=== PATIENT | male | born 1970 | race Caucasian/White ===

== ENCOUNTER → 2016-11-17 | Day surgery (SDC) | payer MEDICARE, MEDICAID ==
[~2016-11-17] MED LIST: BACL20TA PO; CIPR-9 PO; GABA600T PO; LIDOCAINE HCL 1% 30 ML VIAL INFIL ONE; LISI10TA3 PO; MEPERIDINE HCL 25 MG/ML VIAL IV ONE; METO100T PO; MIDAZOLAM HCL 2 MG/2 ML VIAL IV ONE; MIRA25TA PO; PANT20TA2 PO; PERC10TA27 PO; PROPOFOL 200 MG/20 ML AMP IV ONE; SODIUM CHLORIDE 0.9% 250 ML ADDBAG ONE; SODIUM CHLORIDE 0.9% INJ 100 ML ONE; SYMB160A INH; [UNRECOGNIZED DRUG - REMARK] IT ONE; ceFAZolin INJ 1,000 MG VIAL ONE
--- NOTE | 2016-11-18 08:32 | M6 ---
cc: LEVON GARCIA M.D. DATE 11/17/2016 DATE OF 1970 PROCEDURE Implantation of intrathecal catheter for continuous infusion of Baclofen PROCEDURE NOTE History and physical was completed and signed. Consent was signed. Procedure site was marked. Medications were listed and reconciled. Pain score was recorded. Allergies were noted. Time out was taken. Fluoroscopy time was recorded where applicable. Sedation was administered or directed by Dr. Garcia. The patient was given oxygen. The patient was monitored by a registered nurse. Total procedure time was greater than 15 minutes. IV was started, blood pressure cuff, pulse oximeter and EKG were applied. The patient was placed in the left lateral decubitus position, sedated with small amounts of Versed, Demerol and propofol titrated to effect. Vital signs were monitored and remained stable throughout the procedure. His back was prepped with alcohol and 10% Betadine solution, draped with sterile drapes. Fluoroscopy was used to visualize the L3-4 interlaminar space, A 3-1/2-inch 18-gauge Tuohy needle was advanced into the intrathecal space on the first attempt. There was clear flow of cerebrospinal fluid. Then a Portex catheter was threaded in a cephalad direction three vertebral bodies. Then a small incision was made around the needle and the stylet was removed. The needle was removed and a tunneling device was used to pass the catheter to exit on the patient's right flank. There was clear flow of cerebrospinal fluid through the catheter. Then the exit site in the flank and the midline incision were covered with sterile adhesive dressings. The patient was attached to a solution of baclofen at 10 mcg/ml at a continuous rate of 0.4 mL an hour. W. MD DIALLO Tubbs/MARKY /8:28 AM /8:20 AM
== END | disposition home or self-care (01) ==
LOC: PHSDC 06:31
PROVIDERS: ATTEND Pain Medicine Interventional Pain Medicine
DX: M54.6 Pain in thoracic spine (principal); M62.830 Muscle spasm of back
CPT/HCPCS: 62350; 77003; 99152; 99153; C2626; J0476; J0690; J2175; J2250

== ENCOUNTER → 2016-11-24 | Outpatient (CLI) | payer MEDICARE ==
[~2016-11-24] MED LIST changes: -LIDOCAINE HCL 1% 30 ML VIAL INFIL ONE; -MEPERIDINE HCL 25 MG/ML VIAL IV ONE; -MIDAZOLAM HCL 2 MG/2 ML VIAL IV ONE; -PROPOFOL 200 MG/20 ML AMP IV ONE; -SODIUM CHLORIDE 0.9% 250 ML ADDBAG ONE; -SODIUM CHLORIDE 0.9% INJ 100 ML ONE; -[UNRECOGNIZED DRUG - REMARK] IT ONE; -ceFAZolin INJ 1,000 MG VIAL ONE
[2016-11-24 14:11] LABS: AUTOMATED NEUTROPHIL # 7.7 TH/MM3 (1.8-7.7); BASOPHIL # 0.1 TH/MM3 (0-0.2); BASOPHIL % 1.1 % (0.0-2.0); EOSINOPHIL # 0.3 TH/MM3 (0-0.4); EOSINOPHIL % 2.3 % (0.0-4.0); HEMATOCRIT 45.2 % (39.0-51.0); HEMO FLAGS DIFF FINAL; LYMPH % 21.4 % (9.0-44.0); LYMPHOCYTE # 2.5 TH/MM3 (1.0-4.8); MEAN CORPUSCULAR HEMOGLOBIN 30.7 PG (27.0-34.0); MEAN CORPUSCULAR HGB CONC 33.4 % (32.0-36.0); MONO % 7.9 % (0.0-8.0); NEUT % 67.3 % (16.0-70.0); PLATELET COUNT 421 TH/MM3 (150-450); RED BLOOD COUNT 4.91 MIL/MM3 (4.50-5.90); RED CELL DISTRIBUTION WIDTH 15.3 % (11.6-17.2); WHITE BLOOD COUNT 11.5 TH/MM3 (4.0-11.0)
[2016-11-24 14:12] LABS: BLOOD, URINE NEG (NEG); GLUCOSE,URINE NEG (NEG); KETONE, URINE TRACE mg/dL (NEG); NITRITE,URINE NEG (NEG)
[2016-11-24 14:13] LABS: METHOD OF COLLECTION CLEAN CATCH
[2016-11-24 14:14] LABS: URINE COLOR AMBER (YELLW/STRAW)
[2016-11-24 14:19] LABS: BACTERIA, URINE FEW /hpf; COMMENT (UR) CULTURE INDICATED; COMMENT2 (UR) MUCOUS PRESENT; CULTURE IF INDICATED CULTURE INDICATED; RBC, URINE 0-3 /hpf (0-3); SQUAMOUS EPITHELIAL CELL URINE 0-5 /hpf (0-5)
[2016-11-24 14:20] LABS: HYALINE CAST, URINE 0-2 /lpf (RARE); TRANSITIONAL EPI CELLS, URINE 0-5 /hpf
== END ==
LOC: PHSDC 12:49
PROVIDERS: ATTEND Pain Medicine Interventional Pain Medicine
DX: Z01.812 Encounter for preprocedural laboratory examination (principal); G82.20 Paraplegia, unspecified; M54.5 Low back pain; R82.90 Unspecified abnormal findings in urine
CPT/HCPCS: 81001; 84132; 85025; 87086

== ENCOUNTER → 2016-11-30 | Day surgery (SDC) | payer MEDICARE ==
[~2016-11-30] VITALS: Ht 182.9 cm; Wt 91.0 kg
[~2016-11-30] MED LIST changes: +BUPIVACAINE/EPINEPHRINE 0.5% PF 30 ML VIAL ONE; +FAMOTIDINE 20 MG/2 ML VIAL ONE; +KETAMINE HCL 500 MG/10 ML VIAL ONE; +LACTATED RINGER'S 1000 ML INJ 1,000 ML ONE; +MEPERIDINE HCL 50 MG/ML VIAL ONE; +MIDAZOLAM HCL 2 MG/2 ML VIAL ONE; +PROPOFOL 200 MG/20 ML AMP IV ONE; +SODIUM CHLOR 0.9% 250 ML INJ 250 ML IV ONE; +SODIUM CHLOR 0.9% 250 ML INJ 250 ML ONE; +VANCOMYCIN 500 MG VIAL ONE; +ceFAZolin INJ 1,000 MG VIAL ONE; +fentaNYL CITRATE 250 MCG/5 ML AMP ONE; +oxyCODONE/ACETAMINOPHEN 5 MG/325 MG TAB PO PRN
[2016-11-30 11:54] VITALS: BP 120/83; PULSE 101; RESP 16; TEMP 97.9; O2SAT 97
[2016-11-30 16:30] VITALS: BP 120/74; PULSE 92; RESP 18; TEMP 98; O2SAT 98
--- NOTE | 2016-12-01 09:11 | MP ---
cc: LEVON STUART M.D. DATE OF SURGERY 11/30/2016 DATE OF 1970 PROCEDURE 1. Implantation of intrathecal catheter for infusion of intrathecal baclofen. 2. Implantation of Medtronics SynchroMed pump. PROCEDURE NOTE An IV was started in the holding area. The patient was given IV antibiotics, taken to the operating room, given general LMA anesthesia. The intrathecal catheter exiting on the patient's right flank was removed and then the patient was placed in the right lateral decubitus position. All pressure points were checked and padded. Then his abdomen and back were prepped with Chloraprep and draped with sterile drapes. Then fluoroscopy was used to visualize the L4-5 interspace and a Medtronics Tuohy needle was advanced into the cerebrospinal fluid. There was clear flow of cerebrospinal fluid and a Medtronics intrathecal catheter was threaded in a cephalad direction approximately three vertebral bodies. Then a small incision was made around the needle. Dissection took place down to the interspinous ligament. The needle was removed and an anchoring device was placed over the intrathecal catheter and it was secured to the underlying tissue using two 2-0 Ethibond sutures. There was clear flow of cerebrospinal fluid through the intrathecal catheter. Then an incision was made in the patient's left subcostal area and subcutaneous pocket was created. A tunneling device was used to tunnel the intrathecal catheter from the lumbar area to the subcutaneous pocket. The catheter was then connected to a Medtronic SynchroMed pump which have been filled with sterile baclofen on the side table and covered with a Dacron cuff. Some of the redundant catheter was cut and discarded and measured. Then the redundant remaining catheter was coiled behind the pump and the pump was anchored to the underlying tissue using two 2-0 Ethibond sutures. Hemostasis was obtained with the Bovie. The incisions were irrigated with Betadine and then each incision was closed using 3-0 Monocryl in subcuticular tissue and 3-0 nylon on the skin. The incisions were covered with sterile adhesive dressings and the patient was taken to the recovery room with stable vital signs, neurologically intact. W. MD DIALLO Tubbs/MANOLO /2:13 PM /9:05 AM
== END | disposition home or self-care (01) ==
LOC: PHSDC 11:20
PROVIDERS: ATTEND Pain Medicine Interventional Pain Medicine
DX: G82.20 Paraplegia, unspecified (principal); I10 Essential (primary) hypertension; J45.909 Unspecified asthma, uncomplicated; K21.9 Gastro-esophageal reflux disease without esophagitis; Z88.5 Allergy status to narcotic agent; Z88.8 Allergy status to other drugs, medicaments and biological substances
CPT/HCPCS: 62350; 62362; 76000; C1755; C1772; J0690; J2175; J2250; J3010; J3370; J7050; J7120

== ENCOUNTER → 2017-01-13 | Day surgery (SDC) | payer MEDICARE, OTHER ==
[~2017-01-13] MED LIST changes: -BUPIVACAINE/EPINEPHRINE 0.5% PF 30 ML VIAL ONE; -FAMOTIDINE 20 MG/2 ML VIAL ONE; +IOHEXOL 180 MG/ML 20 ML VIAL (for RAD DIAG) EPIDURAL ONE; -KETAMINE HCL 500 MG/10 ML VIAL ONE; -LACTATED RINGER'S 1000 ML INJ 1,000 ML ONE; -MEPERIDINE HCL 50 MG/ML VIAL ONE; -MIDAZOLAM HCL 2 MG/2 ML VIAL ONE; -PROPOFOL 200 MG/20 ML AMP IV ONE; -SODIUM CHLOR 0.9% 250 ML INJ 250 ML IV ONE; -SODIUM CHLOR 0.9% 250 ML INJ 250 ML ONE; -VANCOMYCIN 500 MG VIAL ONE; -ceFAZolin INJ 1,000 MG VIAL ONE; -fentaNYL CITRATE 250 MCG/5 ML AMP ONE; -oxyCODONE/ACETAMINOPHEN 5 MG/325 MG TAB PO PRN
--- NOTE | 2017-01-15 22:06 | M5 ---
cc: LEVON STUART M.D. DATE OF CONSULTATION: 01/13/2017. DATE OF : 1970. Vital signs were taken including a pain score. Medications were checked and reconciled. Past medical history and past surgical history were updated. Allergies were updated. Any new imaging studies were reviewed. Referring physician records were reviewed. BMI was recorded. Smokers were counseled. Fall risk was discussed. On 11/30/2016, we implanted an intrathecal catheter and a Medtronics pump to deliver intrathecal baclofen on Mr. Cotton. He has been having excellent control of his spasticity until just recently and his lower extremity spasticity has increased. He was completely off his oral baclofen and now he is taking some additional oral baclofen and Dr. Nash has increased his intrathecal baclofen up to 200 micrograms a day but still his spasticity is fairly severe. The patient had some question as to whether the pump was functioning properly so the patient was brought into the hospital today. Under fluoroscopy, I examined the catheter tip which is still in the appropriate position in the cerebrospinal fluid. We also accessed the side port on the pump for we were able to aspirate clear cerebrospinal fluid through the catheter, so the catheter is patent. Then we injected Omnipaque dye through the catheter and there were no leaks in the catheter and the dye was expelled at the distal end of the catheter into the cerebrospinal fluid. So there is no doubt that the catheter system is intact. Then we bolused the pump and under fluoroscopy we could see the rotator in the pump move appropriately, so the pump is functioning properly. At this point, I would have to say that his increase in spasticity is unrelated to his pump. The most frequent cause is some type of infection, usually bladder infection. WMD DIALLO Quinones/CATIA /11:30 AM /10:03 PM
== END | disposition home or self-care (01) ==
LOC: PHSDC 08:56
PROVIDERS: ATTEND Pain Medicine Interventional Pain Medicine
DX: M62.838 Other muscle spasm (principal)
CPT/HCPCS: 62368; 77002; Q9965; 77003

== ENCOUNTER → 2017-01-14 | Outpatient (CLI) | payer MEDICARE ==
[~2017-01-14] MED LIST changes: -IOHEXOL 180 MG/ML 20 ML VIAL (for RAD DIAG) EPIDURAL ONE
[2017-01-14 13:22] LABS: BLOOD, URINE NEG (NEG); GLUCOSE,URINE NEG (NEG); KETONE, URINE NEG (NEG); MUCUS URINE FEW /lpf (OCC); NITRITE,URINE NEG (NEG); PH, URINE 6.5 (5.0-8.5); SQUAMOUS EPITHELIAL CELL URINE 1 /hpf (0-5); TRANSITIONAL EPI CELLS, URINE <1 /hpf; URINE COLOR YELLOW (YELLW/STRAW)
[2017-01-14 13:23] LABS: COMMENT (UR) CULT NOT INDICATED; CULTURE IF INDICATED CULT NOT INDICATED
== END ==
LOC: PLAB 10:57
PROVIDERS: ATTEND Physical Medicine & Rehabilitation
DX: N39.0 Urinary tract infection, site not specified (principal)
CPT/HCPCS: 81001; 87086

== ENCOUNTER → 2017-04-08 | Day surgery (SDC) | payer MEDICARE, OTHER ==
[~2017-04-08] MED LIST changes: +BACLOF10P IT; -CIPR-9 PO; +IOHEXOL 180 MG/ML 20 ML VIAL (for RAD DIAG) IT ONE
--- NOTE | 2017-04-08 19:31 | RADRPT ---
EXAM DATE/TIME: 04/08/2017 11:33 [facility] COMPARISON: No previous studies available for comparison. INDICATIONS : Evaluate intrathecal catheter placement with injection. MEDICAL HISTORY : None. SURGICAL HISTORY : None. ENCOUNTER: Initial ACUITY: 1 day PAIN SCORE: 0/10 LOCATION: Bilateral Lumbar FINDINGS: Amorphous collection of contrast seen projecting over the mid lumbar spine slightly left of midline. This is not convincingly intrathecal. CONCLUSION: Contrast though opacification projecting over the mid lumbar spine as above. Sebastian Espino MD on April 08, 2017 at 19:29 Board Certified Radiologist. This report was verified electronically.
--- NOTE | 2017-04-09 10:29 | M5 ---
cc: Lalita STUART DATE OF CONSULTATION 04/08/2017 DATE OF 1970 Vital signs were taken including a pain score. Medications were checked and reconciled. Past medical history and past surgical history were updated. Allergies were updated. Any new imaging studies were reviewed. Referring physician records were reviewed. BMI was recorded. Smokers were counseled. Fall risk was discussed. Mr. Cotton has an implanted baclofen pump which has been controlling his symptoms very very well for many months, but recently he has had a significant change and his spasms have dramatically increased. The patient was examined under fluoroscopy today. The spinal access port was accessed. It was difficult to aspirate even 1 mL of cerebrospinal fluid or at least clear fluid. Then Omnipaque dye was injected. The intrathecal catheter has migrated. The tip of that catheter is down at L5 now and the Omnipaque dye collected in the tissue at the catheter tip and clearly did not spread into the cerebrospinal fluid. So, the patient has been subject to some violent spasms which may have caused the catheter to migrate. We need to reposition the catheter or replace the catheter with a new catheter and that will be scheduled in the near future. MD DIALLO Tripp/MARKY /11:30 AM /10:22 AM
== END | disposition home or self-care (01) ==
LOC: PHSDC 09:59
PROVIDERS: ATTEND Pain Medicine Interventional Pain Medicine
DX: Z45.49 Encounter for adjustment and management of other implanted nervous system device (principal); M54.5 Low back pain; R25.2 Cramp and spasm
CPT/HCPCS: 62368; 72020; 77002; Q9965

== ENCOUNTER → 2017-04-12 | Outpatient (CLI) | payer MEDICARE, OTHER ==
[~2017-04-12] MED LIST changes: -IOHEXOL 180 MG/ML 20 ML VIAL (for RAD DIAG) IT ONE
[2017-04-12 13:30] LABS: AUTOMATED NEUTROPHIL # 3.9 TH/MM3 (1.8-7.7); BASOPHIL % 0.5 % (0.0-2.0); EOSINOPHIL # 0.4 TH/MM3 (0-0.4); EOSINOPHIL % 5.3 % (0.0-4.0); HEMATOCRIT 40.4 % (39.0-51.0); HEMO FLAGS DIFF FINAL; LYMPHOCYTE # 2.9 TH/MM3 (1.0-4.8); MEAN CELL VOLUME 88.6 FL (80.0-100.0); MEAN CORPUSCULAR HEMOGLOBIN 30.8 PG (27.0-34.0); MEAN CORPUSCULAR HGB CONC 34.7 % (32.0-36.0); MONO % 6.3 % (0.0-8.0); NEUT % 49.9 % (16.0-70.0); PLATELET COUNT 252 TH/MM3 (150-450); RED BLOOD COUNT 4.56 MIL/MM3 (4.50-5.90); RED CELL DISTRIBUTION WIDTH 12.7 % (11.6-17.2); WHITE BLOOD COUNT 7.7 TH/MM3 (4.0-11.0)
[2017-04-12 13:48] LABS: BLOOD, URINE NEG (NEG); GLUCOSE,URINE NEG (NEG); KETONE, URINE NEG (NEG); NITRITE,URINE NEG (NEG)
[2017-04-12 13:59] LABS: METHOD OF COLLECTION CATH; URINE COLOR STRAW (YELLW/STRAW)
[2017-04-12 14:00] LABS: COMMENT (UR) CULT NOT INDICATED; CULTURE IF INDICATED CULT NOT INDICATED; MUCUS URINE OCC /lpf (OCC); SQUAMOUS EPITHELIAL CELL URINE 0-3 /hpf (0-5)
== END ==
LOC: PHPRE 12:48
PROVIDERS: ATTEND Pain Medicine Interventional Pain Medicine
DX: M54.5 Low back pain (principal)
CPT/HCPCS: 36415; 81001; 84132; 85025

== ENCOUNTER → 2017-04-15 | Day surgery (SDC) | payer MEDICARE ==
[~2017-04-15] VITALS: Ht 182.9 cm; Wt 82.0 kg
[~2017-04-15] MED LIST changes: +BUPIVACAINE/EPINEPHRINE 0.5% PF 10 ML VIAL INFIL ONE; +CHLORHEXIDINE GLUCONATE 2 % 1 PACK (2 CLOTHS) TOPICAL PRN; +CHLORHEXIDINE GLUCONATE 4% SOLN 120 ML BTL TOPICAL ONE; +INSULIN HUMAN REGULAR 1,000 UNITS/10 ML VIAL SQ PRN; +LACTATED RINGER'S 1000 ML IV PRN; +MEPERIDINE HCL 25 MG/ML VIAL ONE; +METOPROLOL TARTRATE 25 MG TAB PO PRN; +MIDAZOLAM HCL 2 MG/2 ML VIAL ONE; +MIDAZOLAM HCL 5 MG/ML VIAL (1 ML) ONE; +POVIDONE IODINE 5% (ANTISEPSIS KIT) 4 APPLICATIONS EACH NARE PRN; +RESP: ALBUTEROL 2.5 MG/3 ML NEB (SCH) ONE; +SODIUM CHLORID 0.9% 500 ML IV PRN; +VANCOMYCIN 500 MG/NS 100 ML IV SCH; +ceFAZolin 1,000 MG/NS 100 ML IV SCH
[2017-04-15 13:50] VITALS: BP 156/99; PULSE 76; RESP 18; TEMP 97.5; O2SAT 100
--- NOTE | 2017-04-15 15:03 | MP ---
cc: LEVON STUART M.D. DATE OF SURGERY: 04/15/2017. DATE OF : 1970 PROCEDURE Removal of intrathecal catheter. Implantation of intrathecal catheter. PREPROCEDURE DIAGNOSIS Occlusion of intrathecal catheter for delivery of intrathecal baclofen. PREPROCEDURE NOTE: Mr. Cotton has an intrathecal catheter and place with a pump delivering spinal baclofen which has controlled his abdominal and lower extremity spasticity very well however, the last few weeks his spasticity returned. He had to began taking oral baclofen. Fluoroscopy confirmed that the intrathecal catheter had migrated and was occluded so new catheter needed to be placed. An IV was started in the holding area the patient was given IV antibiotics. Consent forms were signed surgical site was marked. The patient was taken to the operating room, given general endotracheal anesthesia and placed in the prone position. All pressure points were checked and padded. Then his back was prepped with Chloraprep and draped with sterile drapes. The skin in the low lumbar area was infiltrated with 0.5% Marcaine containing epinephrine. A Bovie was used to make an incision over the existing catheter, dissection took place down to the anchoring device which was freed from the anchoring sutures and the intrathecal catheter was removed intact. Then a modified Tuohy needle from the Medtronics kit was advanced into the intrathecal space at L3 there was clear flow of cerebrospinal fluid and a new intrathecal catheter was placed and threaded in a cephalad direction up to T12. Then the needle was removed. The stylet was removed from the new intrathecal catheter. There was clear flow of cerebrospinal fluid through the catheter. The old catheter was cut and the new catheter also was cut, and the cut pieces were measured on a side table. Then the proximal catheter and the distal catheter (new catheter and old catheter were connected using a connecting device from the Medtronics kit) and then the new catheter was anchored to the underlying tissue using an anchoring device and two 2-0 Ethibond sutures. The incision was irrigated with Betadine closure took place with 3-0 Monocryl in the subcuticular tissue and 3-0 nylon on the skin. The incision was covered with sterile adhesive dressings and the patient was taken to the recovery room with stable vital signs. W. MD DIALLO Tubbs/mei /11:57 AM /2:49 PM
== END | disposition home or self-care (01) ==
LOC: PHSDC 08:41
PROVIDERS: ATTEND Pain Medicine Interventional Pain Medicine
DX: T85.690A Other mechanical complication of cranial or spinal infusion catheter, initial encounter (principal); M54.5 Low back pain; G89.29 Other chronic pain; M62.830 Muscle spasm of back; I48.91 Unspecified atrial fibrillation; G82.20 Paraplegia, unspecified; Z98.1 Arthrodesis status; M19.90 Unspecified osteoarthritis, unspecified site
CPT/HCPCS: 01936; 62350; C1755; J0690; J2175; J2250; J3010; J3370; J7120; J7613

== ENCOUNTER 2017-11-09 09:21 | Emergency (ER) | payer MEDICARE ==
[~2017-11-09 09:21] MED LIST changes: -BACL20TA PO; -BUPIVACAINE/EPINEPHRINE 0.5% PF 10 ML VIAL INFIL ONE; -CHLORHEXIDINE GLUCONATE 2 % 1 PACK (2 CLOTHS) TOPICAL PRN; -CHLORHEXIDINE GLUCONATE 4% SOLN 120 ML BTL TOPICAL ONE; -INSULIN HUMAN REGULAR 1,000 UNITS/10 ML VIAL SQ PRN; -LACTATED RINGER'S 1000 ML IV PRN; -MEPERIDINE HCL 25 MG/ML VIAL ONE; -METOPROLOL TARTRATE 25 MG TAB PO PRN; -MIDAZOLAM HCL 2 MG/2 ML VIAL ONE; -MIDAZOLAM HCL 5 MG/ML VIAL (1 ML) ONE; -POVIDONE IODINE 5% (ANTISEPSIS KIT) 4 APPLICATIONS EACH NARE PRN; -RESP: ALBUTEROL 2.5 MG/3 ML NEB (SCH) ONE; -SODIUM CHLORID 0.9% 500 ML IV PRN; -VANCOMYCIN 500 MG/NS 100 ML IV SCH; -ceFAZolin 1,000 MG/NS 100 ML IV SCH
[2017-11-09 09:45] VITALS: BP 177/117; PULSE 79; RESP 18; O2SAT 99
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
== END 2017-11-09 10:44 | disposition left against medical advice (07) ==
LOC: NEPD 09:21
DX: S71.112A Laceration without foreign body, left thigh, initial encounter (principal); X78.9XXA Intentional self-harm by unspecified sharp object, initial encounter
CPT/HCPCS: 99281